=== PATIENT | male | born 1990 | race African-American/Black ===

== ENCOUNTER 2019-04-03 15:23 | Emergency (ER) | payer OTHER ==
[~2019-04-03] VITALS: Ht 182.9 cm; Wt 68.5 kg
[~2019-04-03 15:23] MED LIST: IBUPROFEN 600600 M1 PO; PREDNISONE 20 M20 M1 PO; PROVENTIL HFA6.7 G1 INH
[2019-04-03 16:00] LABS: ABSOLUTE NEUTROPHILS 5.1 thou/uL (1.4-8.2); BASOPHILS 0.5 % (0.0-2.0); EOSINOPHILS 2.2 % (0.0-3.0); HEMATOCRIT 47.4 % (42.0-52.0); HEMOGLOBIN 15.5 gm/dL (14.0-18.0); LYMPHOCYTES 15.4 % (24.0-44.0); MCH 27.3 pg (26.0-34.0); MCHC 32.6 g/dL (28.0-37.0); MCV 83.7 fL (80.0-100.0); MONOCYTES 7.4 % (1.0-8.0); PLATELET COUNT 219 thou/uL (150-400); POLYS 74.5 % (36.0-66.0); RBC 5.66 mil/uL (4.50-6.00); WBC 6.8 thou/uL (4.0-11.0)
[2019-04-03 16:05] LABS: ANION GAP 6 mmol/L (7-16); BUN 13 mg/dL (7-18); CALCIUM 9.5 mg/dL (8.5-10.1); CHLORIDE 103 mmol/L (98-107); CO2 31 mmol/L (21-32); CREATININE 0.9 mg/dL (0.7-1.3); GLUCOSE 109 mg/dL (74-106); POTASSIUM 4.2 mmol/L (3.5-5.1); SODIUM 140 mmol/L (136-145)
[2019-04-03 16:13] LABS: TROPONIN-I <0.06 ng/mL (<0.06)
[2019-04-03 18:13] VITALS: BP 127/62
--- NOTE | 2019-04-04 08:40 | EKG ---
[place] [address] [facility] [place] [address] ELECTROCARDIOGRAM REPORT Name: IVAN HALL [facility] [id number] Admission: 04/03/19 Attend Phys: Discharge: 04/03/19 Date of : 89 Report #: [id number] THIS REPORT FOR: //name// [facility] ED Test Date: 2019-04-03 Test Time: 15:31:53 Pat Name: IVAN HALL Department: Room: Gender: M Team Supervisor: [facility] : 1990 Requested By: Ivan Cloud Order Number: [id number] MD: Tommy Zhou Measurements Intervals [place] Rate: 75 P: 67 [place]: 139 QRS: 117 QRSD: 99 T: 35 QT: 357 QTc: 399 Interpretive Statements Sinus rhythm Poor R wave progression Rightward axis Compared to ECG 01/18/2014 07:20:47 No significant change was found Electronically Signed On 04-04-2019 8:40:10 CDT by Tommy Zhou [email or web address] <ELECTRONICALLY SIGNED> By: Tommy Zhou MD, [facility] 04/04/19 0840 1531 1531 Tommy Zhou MD, FACC /EPI
== END 2019-04-03 18:35 | disposition home or self-care (01) ==
LOC: ER 15:23
PROVIDERS: Emergency Medicine
DX: R07.89 Other chest pain (principal); J45.909 Unspecified asthma, uncomplicated